=== PATIENT | male | born 1980 | race Native Hawaiian/Other Pacific Islander ===

== ENCOUNTER 2017-01-31 22:03 | Emergency (ER) | payer OTHER ==
--- NOTE | 2017-01-31 22:48 | C.PDOC ---
History Of Present Illness 36 year old male presents to the ED for evaluation of chest pain which began around 30 minutes prior to arrival. Patient describes his pain as a pressure- like sensation which began while he was resting. Patient states he is currently asymptomatic in the ED and denies shortness of breath, nausea, and diaphoresis. Chief Complaint (Nursing): Chest Pain History Per: Patient History/Exam Limitations: no limitations Onset/Duration Of Symptoms: Mins (30) Current Symptoms Are (Timing): Better Quality: Pressure, "Pain" Associated Symptoms: denies: Nausea, Dyspnea, Diaphoresis Additional History Per: Patient Past Medical History Reviewed: Historical Data, Nursing Documentation, Vital Signs Vital Signs: Last Vital Signs Temp 98.1 F 01/31/17 22:10 Pulse 61 01/31/17 23:34 Resp 20 01/31/17 23:34 BP 106/71 01/31/17 23:34 Pulse Ox 95 01/31/17 23:34 - Medical History PMH: HTN Surgical History: Appendectomy Family History: States: Unknown Family Hx - Social History Hx Alcohol Use: No Hx Substance Use: No - Immunization History Hx Tetanus Toxoid Vaccination: No Hx Influenza Vaccination: No Hx Pneumococcal Vaccination: No Review Of Systems Constitutional: Negative for: Sweats Cardiovascular: Positive for: Chest Pain Respiratory: Negative for: Shortness of Breath Gastrointestinal: Negative for: Nausea Physical Exam - Physical Exam Appears: Non-toxic, No Acute Distress Skin: Normal Color, Warm, Dry Head: Atraumatic, Normacephalic Eye(s): bilateral: Normal Inspection Oral Mucosa: Moist Neck: Supple Chest: Symmetrical, No Deformity, No Tenderness Cardiovascular: Rhythm Regular, No Murmur Respiratory: Normal Breath Sounds, No Rales, No Rhonchi, No Wheezing Extremity: Normal ROM, Capillary Refill (less than 2 seconds ) Neurological/Psych: Oriented x3, Normal Speech, Normal Cognition Gait: Steady ED Course And Treatment - Laboratory Results Result Diagrams: 01/31/17 23:11 01/31/17 23:11 O2 Sat by Pulse Oximetry: 98 (on RA) Pulse Ox Interpretation: Normal Progress Note: EKG ordered and reviewed. Disposition Counseled Patient/Family Regarding: Diagnosis - Disposition Referrals: [facility] [Outside] Disposition: HOME/ ROUTINE Disposition Time: 00:25 Condition: STABLE Instructions: Chest Pain (DC) Forms: [facility] ([place]) - POA Present On Arrival: None - Clinical Impression Clinical Impression: Chest pain - Scribe Statement The provider has reviewed the documentation as recorded by the Scribe (Kaylyn Bermudez) Provider Attestation: All medical record entries made by the Scribe were at my direction and personally dictated by me. I have reviewed the chart and agree that the record accurately reflects my personal performance of the history, physical exam, medical decision making, and the department course for this patient. I have also personally directed, reviewed, and agree with the discharge instructions and disposition.
[2017-01-31 23:15] LABS: BASO % 0.4 % (0.0-2.0); EOS # 0.1 K/uL (0.0-0.7); EOS % 1.3 % (0.0-4.0); HEMATOCRIT 45.8 % (35.0-51.0); LYMPH # 3.3 K/uL (1.0-4.3); LYMPH % 31.6 % (20.0-40.0); MEAN CELL VOLUME 88.8 fL (80.0-94.0); MEAN CORPUSCULAR HEMOGLOBIN 30.2 pg (27.0-31.0); MEAN PLATELET VOLUME 7.3 fL (7.2-11.7); MONO # 0.8 K/uL (0.0-0.8); NRBC % 0.1 % (0.0-2.0); RED CELL DISTRIBUTION WIDTH 13.1 % (11.5-14.5); WHITE BLOOD COUNT 10.5 K/uL (4.8-10.8)
[2017-01-31 23:24] LABS: CHLORIDE 96 mmol/L (98-107); SODIUM 134 mmol/L (132-148)
[2017-01-31 23:25] LABS: POTASSIUM 3.8 mmol/L (3.6-5.2)
[2017-01-31 23:27] LABS: ALB/GLOB RATIO 1.5 (1.0-2.1); ALKALINE PHOSPHATASE 60 U/L (38-126); ALT/SGPT 52 U/L (21-72); AST/SGOT 25 U/L (17-59); BILIRUBIN,TOTAL 0.6 mg/dL (0.2-1.3); BLOOD UREA NITROGEN 13 mg/dL (9-20); CARBON DIOXIDE 25 mmol/L (22-30); GFR AFRICAN-AMERICAN > 60; GLUCOSE,RANDOM 128 mg/dL (75-110); TOTAL PROTEIN 7.6 g/dL (6.3-8.3)
[2017-01-31 23:28] LABS: CALCIUM 9.2 mg/dl (8.6-10.4)
[2017-02-01 00:37] VITALS: BP 118/75; PULSE 70; RESP 19; TEMP 98.9; O2SAT 99
--- NOTE | 2017-02-01 08:14 | RAD ---
HISTORY: chest pain COMPARISON: No prior. TECHNIQUE: Chest PA and lateral FINDINGS: LUNGS: No active pulmonary disease. PLEURA: No significant pleural effusion identified. No pneumothorax apparent. CARDIOVASCULAR: Normal. OSSEOUS STRUCTURES: No significant abnormalities. VISUALIZED UPPER ABDOMEN: Normal. OTHER FINDINGS: None. IMPRESSION: No active disease.
--- NOTE | 2017-02-02 12:19 | CARD ---
APPROVED REPORT EKG Measurement Heart [id number] <Conclusion> Normal sinus rhythm Normal ECG
== END 2017-02-01 00:38 | disposition home or self-care (01) ==
LOC: C.ER 22:03
DX: R07.9 Chest pain, unspecified (principal)

== ENCOUNTER 2017-02-02 18:26 | Emergency (ER) | payer OTHER ==
[2017-02-02 18:48] VITALS: TEMP 98.1; O2SAT 98; BMI 21.9
[2017-02-02] MEDS ORDERED: Aspirin 325 mg EC Tablets PO STA (20:34)
[2017-02-02] MEDS ORDERED: Alum-Mag Hydrox-Simethicone Susp (30 mL) PO STA (20:35)
[2017-02-02] MEDS ORDERED: Aspirin 325 mg EC Tablets PO ONE (20:41)
[2017-02-02] MEDS ORDERED: Aluminum Hydroxide/Magnesium Hydroxide Susp (30 mL) ONE (20:41)
[2017-02-02 21:16] LABS: BASO % 0.4 % (0.0-2.0); EOS # 0.1 K/uL (0.0-0.7); EOS % 1.1 % (0.0-4.0); HEMATOCRIT 44.9 % (35.0-51.0); LYMPH # 3.3 K/uL (1.0-4.3); MEAN CORPUSCULAR HEMOGLOBIN 30.2 pg (27.0-31.0); MEAN PLATELET VOLUME 7.7 fL (7.2-11.7); MONO # 0.8 K/uL (0.0-0.8); MONO % 7.2 % (0.0-10.0); RED CELL DISTRIBUTION WIDTH 12.7 % (11.5-14.5); WHITE BLOOD COUNT 10.4 K/uL (4.8-10.8)
[2017-02-02 21:25] LABS: PARTIAL THROMBOPLASTIN TIME 34 SECONDS (21-34)
[2017-02-02 21:26] LABS: CHLORIDE 97 mmol/L (98-107)
[2017-02-02 21:27] LABS: POTASSIUM 4.1 mmol/L (3.6-5.2); SODIUM 136 mmol/L (132-148)
[2017-02-02 21:29] LABS: ALB/GLOB RATIO 1.7 (1.0-2.1); ALKALINE PHOSPHATASE 57 U/L (38-126); AST/SGOT 28 U/L (17-59); BILIRUBIN,TOTAL 0.5 mg/dL (0.2-1.3); BLOOD UREA NITROGEN 14 mg/dL (9-20); CARBON DIOXIDE 27 mmol/L (22-30); GFR AFRICAN-AMERICAN > 60; TOTAL PROTEIN 7.3 g/dL (6.3-8.3)
[2017-02-02 21:30] LABS: ALT/SGPT 48 U/L (21-72); CALCIUM 9.3 mg/dl (8.6-10.4); GLUCOSE,RANDOM 96 mg/dL (75-110)
--- NOTE | 2017-02-02 22:02 | C.PDOC ---
Time Seen by Provider: 02/02/17 20:18 Chief Complaint (Nursing): Chest Pain History Per: Patient Onset/Duration Of Symptoms: Days (2), Intermittent Episodes Current Symptoms Are (Timing): Still Present Severity: Moderate Quality: Pressure Associated Symptoms: denies: Nausea, Dyspnea, Diaphoresis, Syncope Modifying Factors: Other Indicated Below Exacerbating Factors: Other (Eating?) Alleviating Factors: None Additional History Per: Prior Records Past Medical History Reviewed: Historical Data, Nursing Documentation, Vital Signs Vital Signs: Last Vital Signs Temp 98.1 F 02/02/17 18:48 Pulse 66 02/02/17 18:48 Resp 20 02/02/17 18:48 BP 133/86 02/02/17 18:48 Pulse Ox 98 02/02/17 18:48 - Medical History PMH: HTN Surgical History: Appendectomy Family History: Denies: [place] - Social History Hx Tobacco Use: No Hx Alcohol Use: No Hx Substance Use: No - Immunization History Hx Tetanus Toxoid Vaccination: No Hx Influenza Vaccination: No Hx Pneumococcal Vaccination: No Review Of Systems Except As Marked, All Systems Reviewed And Found Negative. Constitutional: Negative for: Fever, Weakness Respiratory: Negative for: Shortness of Breath, Hemoptysis Gastrointestinal: Negative for: Vomiting, Abdominal Pain Musculoskeletal: Negative for: Neck Pain, Back Pain, Leg Pain Skin: Negative for: Rash Neurological: Negative for: Weakness, Numbness Physical Exam - Physical Exam Appears: Non-toxic, No Acute Distress Skin: Normal Color, Warm, Dry, No Rash Head: Atraumatic, Normacephalic Eye(s): bilateral: Normal Inspection, PERRL, EOMI Neck: Normal ROM, Supple Chest: Symmetrical, No Deformity Cardiovascular: Rhythm Regular Respiratory: Normal Breath Sounds, No Accessory Muscle Use Gastrointestinal/Abdominal: Soft, No Tenderness Back: No CVA Tenderness Extremity: Normal ROM, No Pedal Edema, No Calf Tenderness Neurological/Psych: Oriented x3, Normal Motor, Normal Sensation ED Course And Treatment - Laboratory Results Result Diagrams: 02/02/17 21:03 02/02/17 21:03 Lab Interpretation: No Acute Changes ECG: Interpreted By Me, Viewed By Me ECG Rhythm: Sinus Rhythm ECG Interpretation: No Acute Changes Rate From EC O2 Sat by Pulse Oximetry: 98 Pulse Ox Interpretation: Normal Progress - Interventions Interventions:: Observation - Medications Administered Oral: Antacid, Aspirin Intravenous: H-2 mario - Data Reviewed Data Reviewed: Lab, EKG, Old records - Patient Status Patient status: Completely improved - Continuity of Care Discussed patient case with:: Patient, Family-HIPPA compliant, ED Nurse - Patient Plan Patient Plan: Discharge, F/U with PCP Disposition Counseled Patient/Family Regarding: Studies Performed, Diagnosis, Need For Followup, Rx Given - Disposition Referrals: Kip Amaro DO [Staff Provider] - Disposition: HOME/ ROUTINE Disposition Time: 22:15 Condition: IMPROVED Additional Instructions: Follow up with your doctor within 3-4 days for further evaluation and treatment. Return to the ER if you develop shortness of breath, dizziness, vomiting, worsening of symptoms or if you have any other concerns. Prescriptions: Calcium Carbonate/Simethicone [Maalox Advanced 1000 mg-60 mg] 1 - 2 ctb PO PRN PRN #30 ctb PRN Reason: Indigestion / Heartburn Famotidine [Pepcid] 20 mg PO BID #30 tab Instructions: Chest Pain (ED) - Clinical Impression Clinical Impression: Chest pain
[2017-02-02 22:29] VITALS: BP 128/85; PULSE 78; RESP 16
== END 2017-02-02 22:27 | disposition home or self-care (01) ==
LOC: C.ER 18:26
DX: R07.9 Chest pain, unspecified (principal)